=== PATIENT | female | born 1985 | race Hispanic/Latino ===

== ENCOUNTER 2021-04-02 07:59 | Emergency (ER) | payer SELFPAY ==
[2021-04-02 08:08] VITALS: BP 107/60
[2021-04-02] MEDS ORDERED: SODIUM CHLORIDE 0.9% 1000 ML 1,000 ML IV ONE (08:09)
--- NOTE | 2021-04-02 08:11 | Emergency Department Report ---
ED General Adult HPI - General Chief complaint: Abdominal Pain Stated complaint: ABD PAIN Time Seen by Provider: 04/02/21 08:09 Source: patient Mode of arrival: Ambulatory Limitations: No Limitations - History of Present Illness Initial comments: 35-year-old female patient presents with complaints of sudden onset of mid/upper abdominal pain starting yesterday. 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 She denies any hematemesis/coffee-ground emesis, melena/hematochezia, urinary symptoms, or chest pain. She does report vomiting and states the pain is a 8/10 in severity. Patient reports this feels like her pancreatitis flares. Past abdominal surgical history includes gastric bypass surgery. She denies any other past medical history. - Related Data Previous Rx's Medication Instructions Recorded Last Taken Type Dicyclomine [Bentyl] 20 mg PO QID PRN #30 tablet 04/02/21 Unknown Rx Ondansetron [Zofran Odt] 4 mg PO Q8HR PRN #15 tab.rapdis 04/02/21 Unknown Rx Allergies Allergy/AdvReac Type Severity Reaction Status Date / Time No Known Allergies Allergy Verified 04/02/21 08:19 ED Review of Systems ROS: Stated complaint: ABD PAIN Other details as noted in HPI Constitutional: denies: chills, diaphoresis, fever, malaise, weakness Respiratory: denies: cough, shortness of breath Cardiovascular: denies: chest pain Gastrointestinal: abdominal pain, nausea, vomiting. denies: diarrhea, constipation, hematemesis, melena, hematochezia Genitourinary: denies: urgency, dysuria, frequency, hematuria Musculoskeletal: denies: back pain Neurological: denies: headache ED Past Medical Hx - Social History Smoking Status: Never Smoker Substance Use Type: None - Medications Home Medications: Home Medications Medication Instructions Recorded Confirmed Last Taken Type Dicyclomine [Bentyl] 20 mg PO QID PRN #30 tablet 04/02/21 Unknown Rx Ondansetron [Zofran Odt] 4 mg PO Q8HR PRN #15 tab.rapdis 04/02/21 Unknown Rx ED Physical Exam - General Limitations: No Limitations General appearance: alert, in no apparent distress - Head Head exam: Present: atraumatic, normocephalic - Eye Eye exam: Present: normal appearance. Absent: scleral icterus - Respiratory Respiratory exam: Present: normal lung sounds bilaterally. Absent: respiratory distress - Cardiovascular Cardiovascular Exam: Present: regular rate, normal rhythm - GI/Abdominal GI/Abdominal exam: Present: soft, tenderness (Periumbilical/epigastric), normal bowel sounds. Absent: distended, guarding, rebound, rigid - Extremities Exam Extremities exam: Present: full ROM - Back Exam Back exam: Present: normal inspection - Neurological Exam Neurological exam: Present: alert, oriented X3, normal gait - Psychiatric Psychiatric exam: Present: normal affect, normal mood - Skin Skin exam: Present: warm, dry, intact, normal color. Absent: rash, cyanosis, diaphoretic ED Course Vital Signs 04/02/21 08:04 Temperature 97.9 F Pulse Rate 98 H Respiratory 18 Rate Blood Pressure 107/60 [Left] O2 Sat by Pulse 98 Oximetry ED Medical Decision Making - Lab Data Result diagrams: 04/02/21 08:49 04/02/21 08:49 - Radiology Data Radiology results: report reviewed CT ABDOMEN AND PELVIS WITH CONTRAST HISTORY: mid/upper abd pain, hx of pancreatitis and UC OMNI 300 100 ML. COMPARISON: None. TECHNIQUE: CT images of the abdomen and pelvis were obtained following administration of intravenous contrast. All CT scans at this location are performed using CT dose reduction for ALARA by means of automated exposure control. CONTRAST: 100 ml of intravenous contrast administered. FINDINGS: Lungs/bones: Lung bases are clear. No acute osseous abnormality or significant degenerative disease. Abdomen/pelvis: The gallbladder is surgically absent. The liver, spleen, pancreas, adrenals, kidneys, and proximal GI tract appear unremarkable except for old postoperative change involving the stomach. No bowel obstruction or inflammation. Urinary bladder and prostate are unremarkable. No pelvic free fluid or acute colonic abnormality identified. The terminal ileum and appendix are normal. IMPRESSION: 1. No acute abnormality identified. - Medical Decision Making 35-year-old female patient presents with complaints of sudden onset of mid/upper abdominal pain starting yesterday. 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 She denies any hematemesis/coffee-ground emesis, melena/hematochezia, urinary symptoms, or chest pain. She does report vomiting and states the pain is a 8/10 in severity. Patient reports this feels like her pancreatitis flares. Past abdominal surgical history includes gastric bypass surgery. She denies any other past medical history. No acute abnormalities noted on CT abdomen or labs, however patient eloped prior to disposition Critical care attestation.: If time is entered above; I have spent that time in minutes in the direct care of this critically ill patient, excluding procedure time. ED Disposition Clinical Impression: Abdominal pain Disposition: LEFT AWOL/ELOPED Is pt being admited?: No Condition: Stable Instructions: Abdominal Pain, Adult, [id number], Abdominal Pain (ED) Prescriptions: Dicyclomine [Bentyl] 20 mg PO QID PRN #30 tablet PRN Reason: abdominal pain Ondansetron [Zofran Odt] 4 mg PO Q8HR PRN #15 tab.rapdis PRN Reason: nausea Referrals: PRIMARY CARE,MD [Primary Care Provider] - 3-5 Days Forms: Work/School Release Form(ED)
[2021-04-02] MEDS ORDERED: METOCLOPRAMIDE 10 MG/2 ML INJ IV NR (08:30)
[2021-04-02] MEDS ORDERED: PANTOPRAZOLE 40 MG INJ IV NR (08:30)
[2021-04-02] MEDS ORDERED: diphenhydrAMINE 50 MG/ML VIAL IV NR (08:30)
[2021-04-02] MEDS ORDERED: MORPHINE 4 MG/1 ML INJ IV ONE (08:58)
[2021-04-02 09:05] LABS: Basophils % (Auto) 0.9 % (0.0-1.8); Eosinophils # (Auto) 0.1 K/mm3 (0.0-0.4); Hematocrit 34.9 % (30.3-42.9); Hemoglobin 11.5 gm/dl (10.1-14.3); Lymphocytes # (Auto) 1.3 K/mm3 (1.2-5.4); Mean Corpuscular HGB Conc 33 % (30-34); Mean Corpuscular Volume 86 fl (79-97); Monocytes # (Auto) 0.4 K/mm3 (0.0-0.8); Monocytes % (Auto) 12.4 % (0.0-7.3); Platelet Count 280 K/mm3 (140-440); Red Blood Count 4.07 M/mm3 (3.65-5.03); Red Cell Distribution Width 13.1 % (13.2-15.2)
[2021-04-02 09:32] LABS: Alanine Aminotransferase 19 units/L (7-56); Albumin 3.9 g/dL (3.9-5); BUN/Creatinine Ratio 23; Blood Urea Nitrogen 18 mg/dL (7-17); Calcium 8.7 mg/dL (8.4-10.2); Hemolysis Index 310
[2021-04-02] MEDS ORDERED: MORPHINE 2 MG/1 ML INJ IV NR (10:00)
--- NOTE | 2021-04-02 10:29 | Cat Scan Report ---
CT ABDOMEN AND PELVIS WITH CONTRAST HISTORY: mid/upper abd pain, hx of pancreatitis and UC OMNI 300 100 ML. COMPARISON: None. TECHNIQUE: CT images of the abdomen and pelvis were obtained following administration of intravenous contrast. All CT scans at this location are performed using CT dose reduction for ALARA by means of automated exposure control. CONTRAST: 100 ml of intravenous contrast administered. FINDINGS: Lungs/bones: Lung bases are clear. No acute osseous abnormality or significant degenerative disease. Abdomen/pelvis: The gallbladder is surgically absent. The liver, spleen, pancreas, adrenals, kidneys , and proximal GI tract appear unremarkable except for old postoperative change involving the stomach . No bowel obstruction or inflammation. Urinary bladder and prostate are unremarkable. No pelvic free fluid or acute colonic abnormality iden tified. The terminal ileum and appendix are normal. IMPRESSION: 1. No acute abnormality identified. Signer Name: Chao Weinstein MD Signed: 04/02/2021 10:25 AM Workstation Name: [id number]
[2021-04-02 11:04] LABS: Bilirubin,Urine NEG (Negative); Blood,Urine NEG (Negative); Color,Urine Amber (Yellow); Mucus,Urine FEW /HPF; Protein,Urine <15 mg/dL mg/dL (Negative)
--- NOTE | 2021-04-02 14:21 | Electrocardiograph Report ---
[facility] Test Date: 2021-04-02 Test Time: 09:38:06 Pat Name: RUIZ HANSON Department: Room: Gender: F [employer]: JAROD : 1985 Requested By: DEANDRE HYDE Order Number: [id number] Reading MD: Reed Roca Measurements Intervals [place] Rate: 83 P: 60 AL: 161 QRS: 42 QRSD: 80 T: 38 QT: 389 QTc: 457 Interpretive Statements Sinus rhythm Low voltage, precordial leads No previous ECG available for comparison Electronically Signed On 04-02-2021 14:21:42 EDT by Reed Roca
== END 2021-04-02 11:58 | disposition left against medical advice (07) ==
LOC: ED 07:59
DX: R10.13 Epigastric pain (principal); R10.33 Periumbilical pain; Z79.899 Other long term (current) drug therapy
CPT/HCPCS: 36415; 74177; 80053; 81001; 83690; 84703; 85025; 93005; 96361; 96374; 96375; 99284; C9113; J1200; J2270; J2765; J7030; Q9967